=== PATIENT | female | born 1950 | race Hispanic/Latino ===

== ENCOUNTER 2017-04-20 06:32 | Day surgery (SDC) | payer MEDICARE ==
[2017-04-18 11:33] VITALS: BMI 31.4
[2017-04-20 07:13] LABS: BASO # 0.03 K/mm3 (0.0-2.0); BASO % 0.5 % (0.0-3.0); EOS # 0.1 (0.0-0.7); GRAN # 3.4 (1.4-6.5); GRAN % 52.4 % (50.0-68.0); HEMATOCRIT 44.9 % (36.0-48.0); LYMPH # 2.3 (1.2-3.4); LYMPH % 35.9 % (22.0-35.0); MEAN CELL VOLUME 90.5 fl (80.0-105.0); MEAN CORPUSCULAR HEMOGLOBIN 29.8 pg (25.0-35.0); MEAN PLATELET VOLUME 12.8 fl (7.0-11.0); MONO # 0.6 (0.1-0.6); MONO % 9.2 % (1.0-6.0); RED CELL DISTRIBUTION WIDTH 13.4 % (11.5-14.5); WHITE BLOOD COUNT 6.5 10^3/ul (4.5-11.0)
[2017-04-20 07:15] LABS: INR 0.95 (0.93-1.08); PARTIAL THROMBOPLASTIN TIME 24.7 Seconds (23.7-30.8)
[2017-04-20 07:28] LABS: CALCIUM 9.3 mg/dL (8.4-10.5); POTASSIUM 4.6 mmol/L (3.6-5.0)
[2017-04-20] MEDS ORDERED: Midazolam 2 MG/2 ML VIAL ONE (08:00)
[2017-04-20 08:31] VITALS: RESP 18
[2017-04-20] MEDS ORDERED: Oxycodone/Acetaminophen 5/325 mg Tab PO PRN (09:07)
[2017-04-20] MEDS ORDERED: Sodium Chloride 0.45% 1,000 ML IV SCH (09:15)
[2017-04-20 10:11] VITALS: TEMP 97.9
--- NOTE | 2017-04-20 11:27 | RAD ---
HISTORY: lt lung bx COMPARISON: CT-guided lung biopsy 04/20/2017. CT chest without contrast 04/14/2017 FINDINGS: LUNGS: The previously referenced suspicious pulmonary nodule adjacent to the descend thoracic aorta is difficult to appreciate on this frontal portable semi-erect study. PLEURA: No significant pleural effusion identified, no pneumothorax apparent. CARDIOVASCULAR: Top-normal heart size. Atherosclerotic vascular calcifications OSSEOUS STRUCTURES: No significant abnormalities. VISUALIZED UPPER ABDOMEN: Normal. OTHER FINDINGS: None. IMPRESSION: No gross pneumothorax. The CT chest without contrast depicted suspicious nodule for malignancy adjacent to the descending thoracic aorta at the left lung base is difficult to visualize on the chest x-ray No interval pathology appreciated
[2017-04-20 11:59] VITALS: BP 170/61; PULSE 85; O2SAT 98
--- NOTE | 2017-04-20 17:49 | CT ---
PROCEDURE: CT guided left lower lobe lung biopsy. HISTORY: Previous smoker. 3.4 cm left lower lobe lung nodule. Evaluate for malignancy. PHYSICIAN(S): Harish Mejia MD. TECHNIQUE: The relative risks and indications of the procedure were explained to the patient and consent obtained. The patient was placed prone on the CT scanner and preliminary images through the lower lungs obtained. Conscious sedation and monitoring were provided throughout the procedure by a nurse. There is a 3.4 cm noncalcified nodule left lower lobe medially contiguous with the descending thoracic aorta.. A left posterior approach was selected and the area prepped and draped in the usual sterile fashion. 1% Xylocaine was used to anesthetize the skin and soft tissues. A 19 gauge guiding needle was advanced into the 3.4 cm left lower lobe lung nodule. Its position was confirmed with CT. Using coaxial technique, multiple core biopsies were obtained. The postprocedure images show no evidence of large pneumothorax or significant hemorrhage.. IMPRESSION: 1. CT-guided left lower lobe lung biopsy as described above.
== END 2017-04-20 12:00 | disposition home or self-care (01) ==
LOC: SDS 06:32
PROVIDERS: ATTEND Radiology Vascular & Interventional Radiology
DX: C34.32 Malignant neoplasm of lower lobe, left bronchus or lung (principal); I10 Essential (primary) hypertension; E03.9 Hypothyroidism, unspecified; Z87.891 Personal history of nicotine dependence

== ENCOUNTER 2018-11-09 14:43 | Outpatient (CLI) | payer MEDICARE | END 2018-11-09 14:44 | disposition home or self-care (01) | LOC: RAD 14:43 ==